=== PATIENT | male | born 1955 | race Caucasian/White ===

== ENCOUNTER 2016-09-22 10:35 | Emergency (ER) | payer BC, OTHER ==
[2016-09-22] MEDS ORDERED: OXYCODONE-ACETAMINOPHEN 5-325 MG TABLET PO ONE (11:51)
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
[2016-09-22 13:21] VITALS: BP 134/76
== END 2016-09-22 13:21 | disposition home or self-care (01) ==
LOC: ER 10:35
DX: S16.1XXA Strain of muscle, fascia and tendon at neck level, initial encounter (principal); M19.90 Unspecified osteoarthritis, unspecified site; I10 Essential (primary) hypertension; M54.2 Cervicalgia; M54.5 Low back pain; V87.7XXA Person injured in collision between other specified motor vehicles (traffic), initial encounter
CPT/HCPCS: 72125; 99283

== ENCOUNTER 2020-03-27 17:43 | Observation (INO) | payer BC ==
[2020-03-27 18:50] LABS: ALBUMIN 3.2 g/dL (3.5-5.0); ALKALINE PHOSPHATASE 74 U/L (38-126); ANION GAP 8 (5-19); ASPARTATE AMINO TRANSFERASE 27 U/L (17-59); BILIRUBIN,DIRECT 0.2 mg/dL (0.0-0.4); BILIRUBIN,TOTAL 0.7 mg/dL (0.2-1.3); BLOOD UREA NITROGEN 17 mg/dL (7-20); CALCIUM 8.4 mg/dL (8.4-10.2); CARBON DIOXIDE 25 mmol/L (22-30); CHLORIDE 109 mmol/L (98-107); CREATINE KINASE 51 U/L (55-170); GLUCOSE 148 mg/dL (75-110); TOTAL PROTEIN 6.3 g/dL (6.3-8.2)
[2020-03-27 19:02] LABS: CREATINE KINASE MB 0.64 ng/mL (<4.55)
[2020-03-27 19:03] LABS: TROPONIN I < 0.012 ng/mL
[2020-03-27 19:16] LABS: ABSOLUTE LYMPHOCYTES (AUTO) 1.4 10^3/uL (0.5-4.7); ABSOLUTE MONOCYTES (AUTO) 0.6 10^3/uL (0.1-1.4); ABSOLUTE NEUT (AUTO) 9.2 10^3/uL (1.7-8.2); BASOPHILS % (AUTO) 0.3 % (0-2); EOSINOPHILS % (AUTO) 0.2 % (0-6); HEMATOCRIT 37.5 % (37.9-51.0); HEMOGLOBIN 12.5 g/dL (13.5-17.0); MEAN CORPUSCULAR HEMOGLOBIN 27.5 pg (27.0-33.4); MEAN CORPUSCULAR HGB CONC 33.4 g/dL (32.0-36.0); MEAN CORPUSCULAR VOLUME 82 fl (80-97); MONOCYTES % (AUTO) 5.8 % (3-13); PLATELET COUNT 370 10^3/uL (150-450); RED BLOOD COUNT 4.56 10^6/uL (4.35-5.55); RED CELL DISTRIBUTION WIDTH 14.2 % (11.5-14.0); SEGMENTED NEUTROPHILS % (AUTO) 81.7 % (42-78); TOTAL CELLS COUNTED % (AUTO) 100 %; WHITE BLOOD COUNT 11.3 10^3/uL (4.0-10.5)
[2020-03-27] MEDS ORDERED: NORMAL SALINE 500 ML IV ONE (19:51)
[2020-03-27] MEDS ORDERED: MECLIZINE HCL 25 MG TABLET PO ONE (19:52)
--- NOTE | 2020-03-27 19:54 | ER Document Report ---
ED General - General Chief Complaint: Dizziness Stated Complaint: WEAKNESS Time Seen by Provider: 03/27/20 19:34 TRAVEL OUTSIDE OF THE U.[place]. IN LAST 30 DAYS: No - HPI Context: Time: 1940 Chief Complaint: [Dizziness and weakness] [64-year-old male presents complaining of generalized dizziness and weakness. Patient states his symptoms are worse when he opens his eyes or when he turns his head. Patient states he feels unsteady on his feet. ] History obtained from [patient] Symptoms began:[3 days ago] Onset: [Gradual] Timing: [Gradual] Quality: [Severe] Intensity: [Severe] Location: ["My head"] Radiation: [Denies] [The pain does not migrate to a new location.] Aggravating factors: [none] Relieving factors: [none] [Denies] SOB [Denies] nausea [Denies] vomiting [Denies] sweats [Denies] fever [Denies] cough [Denies] calf or leg swelling or pain - Related Data Allergies/Adverse Reactions: No Known Allergies Allergy (Unverified 09/22/16 10:47) Home Medications: furosemide, potassium, aspirin, esomeprazole, clopidogrel, metoprolol, metformin, clonidine, lisinopril, amlodipine, isosorbide, fioglitazone, glimepiride, rosuvastatin, trulicity, Past Medical History - General Information source: Patient - Social History Smoking Status: Never Smoker Frequency of alcohol use: Rare Drug Abuse: None Family History: Reviewed & Not Pertinent - Past Medical History Cardiac Medical History: Reports: Hx Heart Attack, Hx Hypercholesterolemia, Hx Hypertension Endocrine Medical History: Reports: Hx Diabetes Mellitus Type 2 Renal/ Medical History: Denies: Hx Peritoneal Dialysis Past Surgical History: Reports: Hx Cardiac Catheterization - with stents, Hx Cholecystectomy - Immunizations Hx Diphtheria, Pertussis, Tetanus Vaccination: Yes Review of Systems - Review of Systems Notes: Review of systems as below unless otherwise stated in HPI. CONSTITUTIONAL [No] fever, [No] chills. EYES [No] eye pain. ENT [No] URI symptoms, [No] sore throat, [No] ear pain. CARDIOVASCULAR [No] chest pain, [No] palpitations, [No] edema. RESPIRATORY [No] Cough, [No] SOB, [No] wheezing. GASTROINTESTINAL [No] abdominal pain, [No] nausea, [No] Diarrhea, [No] Vomiting, [No] constipation, [No] melena, [No] rectal bleeding. GENITOURINARY [No] dysuria, [No] urinary frequency, [No] hematuria, [No] urinary urgency MUSCULOSKELETAL [No] Back pain. SKIN [No] Rash. NEUROLOGIC [No] Headache, [No] recent seizures, [No] paralysis,[No] parathesias. Positive dizziness and weakness ENDOCRINE [No] polyuria. HEMO/LYMPATIC [No] easy brusing PSYCHIATRIC [No] depression. Physical Exam - Vital signs Vitals: Temp Pulse BP Pulse Ox 97.5 F 46 L 143/53 H 100 03/27/20 17:57 03/27/20 17:57 03/27/20 17:57 03/27/20 17:57 - Notes Notes: CONSTITUTIONAL [Vital signs reviewed, Patient appears comfortable, Alert and oriented X 3, Normal stature.] HEAD [Atraumatic, Normocephalic.] EYES [Eyes are normal to inspection, No discharge from eyes, Extraocular muscles intact, Sclera are normal, Conjunctiva are normal. Patient has horizontal fatiguing nystagmus but no vertical nystagmus] ENT [External ears normal to inspection, Nose examination normal, Mouth normal to inspection.] NECK [Normal ROM, No jugular venous distention, No meningeal signs, ] RESPIRATORY CHEST [Chest is nontender, Breath sounds normal, No respiratory distress.] CARDIOVASCULAR [RRR, No murmurs, Normal S1 S2, No rub, No gallop.] ABDOMEN [Abdomen is nontender, No pulsatile masses, No other masses, Bowel sounds normal, No distension, No peritoneal signs, No hernias.] BACK [There is no CVA Tenderness, There is no tenderness to palpation, Normal inspection.] UPPER EXTREMITY [Inspection normal, No cyanosis, No clubbing, No edema, LOWER EXTREMITY [Inspection normal, No cyanosis, No clubbing, No edema, No calf tenderness, NEURO [No focal motor deficits, No focal sensory deficits, Speech normal. Fatiguing nystagmus as noted above] SKIN [Skin is warm, Skin is dry, Skin is normal color.] PSYCHIATRIC [Normal affect. ] Course - Re-evaluation Re-evalutation: 03/28/20 08:21 Despite 225 mg dose of meclizine, fluids, Valium, treatment of UTI, patient remains very unsteady on his feet and complains of persistent dizziness. - Vital Signs Vital signs: Temp Pulse Resp BP Pulse Ox 98.7 F 47 L 17 139/61 H 94 03/27/20 19:20 03/27/20 19:20 03/28/20 07:00 03/28/20 04:01 03/28/20 07:00 - Laboratory Result Diagrams: 03/27/20 19:06 03/27/20 18:12 Laboratory results interpreted by me: 03/27/20 03/27/20 03/27/20 18:12 19:06 20:05 WBC 11.3 H Hgb 12.5 L Hct 37.5 L RDW 14.2 H Lymph % (Auto) 12.0 L Absolute Neuts (auto) 9.2 H Seg Neutrophils % 81.7 H Chloride 109 H Creatinine 0.42 L Glucose 148 H Creatine Kinase 51 L Albumin 3.2 L Urine Protein 100 H Urine Ketones TRACE H Urine Blood MODERATE H Urine Nitrite POSITIVE H Urine Urobilinogen 2.0 H Ur Leukocyte Esterase LARGE H Urine Ascorbic Acid 20 H - Diagnostic Test Radiology reviewed: Reports reviewed - EKG Interpretation by Me Additional EKG results interpreted by me: 03/28/20 08:24 EKG obtained on 03/27/2020 at 1800 hrs. was interpreted by this MD. Findings: Sinus bradycardia heart rate 48, first-degree AV block is present, right bundle branch block also appears present. QTC is 512, there are no obvious patterns of ST segment elevation, depression or reciprocal changes seen to suggest acute myocardial ischemia or infarction. Impression sinus bradycardia with first-d egree AV block, right bundle branch block and nonspecific ST segments. Discharge - Discharge Clinical Impression: Vertigo, Bradycardia UTI (urinary tract infection) Qualifiers: Urinary tract infection type: site unspecified Hematuria presence: with hematu sven Qualified Code(s): N39.0 - Urinary tract infection, site not specified Condition: Stable Disposition: ADMITTED OBSERVATION Admitting Provider: Unit Admitted: Medical Floor
[2020-03-27 20:51] LABS: APPEARANCE,URINE CLOUDY; BILIRUBIN,URINE NEGATIVE (NEGATIVE); COLOR,URINE AMBER; GLUCOSE, URINE NEGATIVE (NEGATIVE); KETONES,URINE TRACE mg/dL (NEGATIVE); LEUKOCYTE ESTERASE,URINE LARGE (NEGATIVE); NITRITE,URINE POSITIVE (NEGATIVE); PROTEIN,URINE 100 mg/dL (NEGATIVE); URINE SPECIFIC GRAVITY 1.029
--- NOTE | 2020-03-27 21:06 | RADIOLOGY REPORT (SQ) ---
EXAM DESCRIPTION: CT HEAD WITHOUT IV CONTRAST COMPLETED DATE/TME: 03/27/2020 20:45 CLINICAL HISTORY: 64 years, Male, dizziness, trouble walking COMPARISON: None. TECHNIQUE: Noncontrast CT head was acquired. No intravenous contrast was administered. Images stored on PACS. All CT scanners at this facility use dose modulation, iterative reconstruction, and/or weight based dosing when appropriate to reduce radiation dose to as low as reasonably achievable (ALARA). [facility]: Dose Right [facility]: CareDose [facility]: Dose Right [facility]: Teradose 4D [facility]: [employer] LIMITATIONS: None. FINDINGS: Evaluation of the brain parenchyma reveals a focus of hypodensity about the left lentiform nucleus on image 22 of series 2. This appears fairly well-demarcated on the coronal and sagittal reformations. Otherwise, the remainder of the brain parenchyma appears normal in attenuation. No acute intracranial hemorrhage, mass effect, or extra-axial fluid is seen. 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 Ventricles and sulcal spaces are normal in size and configuration. Globes and orbits show no acute abnormality. Rounded opacities are evident about both maxillary antra, indicating mucous retention cysts and/or inflammatory polyps. Remaining paranasal sinuses and mastoid air cells are clear. Calcifications are evident about the parasellar carotid arteries. No depressed skull fractures. IMPRESSION: No acute intracranial abnormality. Focus of hypodensity about the left lentiform nucleus appears to be well-demarcated on the coronal and sagittal reformations, either indicating a remote lacunar infarct or dilated perivascular recess. TECHNICAL DOCUMENTATION: Quality ID # 436: Final reports with documentation of one or more dose reduction techniques (e.g., Automated exposure control, adjustment of the mA and/or kV according to patient size, use of iterative reconstruction technique) copyright 2011 [employer]- All Rights Reserved
[2020-03-27] MEDS ORDERED: CEFTRIAXONE INJ 1000 MG VIAL IV ONE (21:08)
[2020-03-28] MEDS ORDERED: DIAZEPAM INJ 10 MG/2 ML DISP.SYRIN IV ONE (01:07)
[2020-03-28] MEDS ORDERED: GLUCAGON,HUMAN RECOMB 1 MG INJ IV STA (01:11)
[2020-03-28] MEDS ORDERED: DIAZEPAM 5 MG TABLET PO ONE (01:28)
[2020-03-28] MEDS ORDERED: MECLIZINE HCL 25 MG TABLET PO ONE (01:45)
[2020-03-28] MEDS ORDERED: ONDANSETRON HCL INJ/PF 4 MG/2 ML SDV IV ONE (02:15)
[2020-03-28] MEDS ORDERED: ONDANSETRON HCL INJ/PF 4 MG/2 ML SDV IV PRN (04:49)
[2020-03-28] MEDS ORDERED: ACETAMINOPHEN 325 MG TABLET PO PRN (04:49)
[2020-03-28] MEDS ORDERED: MECLIZINE HCL 25 MG TABLET PO PRN (05:01)
[2020-03-28] MEDS ORDERED: DEXTROSE 40% GEL 15 GM TUBE PO PRN ×2 (05:07)
[2020-03-28] MEDS ORDERED: GLUCAGON,HUMAN RECOMB 1 MG INJ IM PRN (05:07)
[2020-03-28] MEDS ORDERED: DEXTROSE 50%-WATER 25 GM/50 ML DISP.SYRIN IV PRN ×2 (05:07)
--- NOTE | 2020-03-28 05:08 | PDOC H&P ---
History of Present Illness Admission Date/PCP: DADA MORENO Patient complains of: vertigo History of Present Illness: SELAM BILLY is a 64 year old male with a history of CAD, type 2 diabetes, hypertension, hyperlipidemia and GERD who was recently diagnosed with COVID-19 now presents to the ED reporting he feels dizzy. He states that he feels like t he room spins around especially when he moves his head. Patient reports that the symptoms has been persistent for the past few days and he has been having balance issues due to vertigo. He also states that he has decreased hearing sensation on the right ear, with associated tinnitus, nausea and vomiting. The dizziness is worsened by movement of head and gets better when he closes his eyes. He states that he has been doing well regarding his COVID-19 symptoms and was supposed to finish his quarantine today. He denies any fever, cough, shortness of breath, chest pain, palpitation, fall, head injury, loss of consciousness or any change in his bowel or urinary habits. Past Medical History Cardiac Medical History: Reports: Myocardial Infarction, Hyperlipidema, Hypertension Endocrine Medical History: Reports: Diabetes Mellitus Type 2 Past Surgical History Past Surgical History: Reports: Cardiac Catheterization - with stents, Cholecystectomy Social History Information Source: Patient Lives with: Family Smoking Status: Never Smoker Hx Recreational Drug Use: No Drugs: None - Advance Directive Resuscitation Status: Full Code Family History Family History: Reviewed & Not Pertinent Parental Family History Reviewed: Yes Children Family History Reviewed: Yes Sibling(s) Family History Reviewed.: Yes Medication/Allergy Home Medications: Amlodipine Besylate [Norvasc 2.5 mg Tablet] 2.5 mg PO QAM 03/28/20 Aspirin [Ecotrin 81 mg EC Tablet] 81 mg PO QAM 03/28/20 Cefdinir 300 mg PO BID 10 Days #20 capsule 03/28/20 Clonidine HCl [Catapres 0.1 mg Tablet] 0.1 mg PO Q12A 03/28/20 Clopidogrel Bisulfate [Plavix 75 mg Tablet] 75 mg PO QAM 03/28/20 Dulaglutide [Trulicity] 1.5 mg SUBCUT ANGELES@1000 03/28/20 Esomeprazole Magnesium 40 mg PO QAM 03/28/20 Furosemide [Lasix 40 mg Tablet] 40 mg PO QAM 03/28/20 Glimepiride [Amaryl 4 mg Tablet] 8 mg PO QPM 03/28/20 Isosorbide Mononitrate [Imdur 30 mg Tablet.er] 30 mg PO QAM 03/28/20 Lisinopril [Prinivil 10 mg Tablet] 10 mg PO QAM 03/28/20 Metformin HCl [Metformin HCl ER] 1,000 mg PO BIDBS 03/28/20 Metoprolol Tartrate [Lopressor 100 mg Tablet] 100 mg PO Q12A 03/28/20 Pioglitazone HCl [Actos 30 mg Tablet] 30 mg PO QAM 03/28/20 Potassium Chloride [Klor-Con 10 Meq Tablet ER] 20 meq PO QAM 03/28/20 Rosuvastatin Calcium 5 mg PO QPM 03/28/20 Allergies/Adverse Reactions: No Known Allergies Allergy (Unverified 09/22/16 10:47) Review of Systems Constitutional: ABSENT: chills, fever(s), headache(s), weight gain, weight loss Ears: PRESENT: as per HPI Nose, Mouth, and Throat: PRESENT: vertigo. ABSENT: headache(s), mouth pain, sore throat Cardiovascular: ABSENT: chest pain, dyspnea on exertion, edema, orthropnea, palpitations Respiratory: ABSENT: cough, hemoptysis Gastrointestinal: ABSENT: abdominal pain, constipation, diarrhea, hematemesis, hematochezia, nausea, vomiting Genitourinary: ABSENT: dysuria, hematuria Musculoskeletal: ABSENT: joint swelling Integumentary: ABSENT: rash, wounds Neurological: PRESENT: as per HPI Psychiatric: ABSENT: anxiety, depression, homidical ideation, suicidal ideation Endocrine: ABSENT: cold intolerance, heat intolerance, polydipsia, polyuria Hematologic/Lymphatic: ABSENT: easy bleeding, easy bruising Physical Exam Vital Signs: Temp Pulse Resp BP Pulse Ox 98.7 F 47 L 19 138/63 H 96 03/27/20 19:20 03/27/20 19:20 03/28/20 03:01 03/28/20 03:01 03/28/20 03:01 Intake & Output 03/26/20 03/27/20 03/28/20 06:59 06:59 06:59 Intake Total 500 Balance 500 Weight 142.882 kg Additional comments: GENERAL APPEARANCE: Alert and oriented x3, in no acute distress HEENT: Normocephalic and atraumatic. No scleral icterus. Moist oral mucosa. Has horizontal nystagmus NECK: Supple. No lymphadenopathy or tenderness. No JVD CHEST: Symmetric. Nontender to palpation. LUNGS: Clear with good air entry bilaterally. No wheezing or crackles HEART: Regular rate and rhythm with normal S1 and S2. No murmurs, gallops, or rubs. ABDOMEN: Flat, soft, active bowel sounds, no direct or rebound tenderness. No organomegaly detected. EXTREMITIES: No cyanosis, clubbing, or edema. MUSCULOSKELETAL: No deformity, atrophy or swelling noted PSYCHIATRIC: Recent and remote memory is intact. Appropriate mood and affect. SKIN: Warm, dry, and well perfused. No lesions or rashes are noted. NEUROLOGIC: No focal sensory or motor deficits are noted. Results Laboratory Results: 03/27/20 19:06 03/27/20 18:12 03/27/20 03/27/20 03/27/20 18:12 18:12 19:06 WBC Cancelled 11.3 H RBC Cancelled 4.56 Hgb Cancelled 12.5 L Hct Cancelled 37.5 L MCV Cancelled 82 MCH Cancelled 27.5 MCHC Cancelled 33.4 RDW Cancelled 14.2 H Plt Count Cancelled 370 Seg Neutrophils % Cancelled 81.7 H Sodium 141.7 Potassium 4.0 Chloride 109 H Carbon Dioxide 25 Anion Gap 8 BUN 17 Creatinine 0.42 L Est GFR ( Amer) > 60 Glucose 148 H Calcium 8.4 Total Bilirubin 0.7 AST 27 Alkaline Phosphatase 74 Total Protein 6.3 Albumin 3.2 L Urine Color Urine Appearance Urine pH Ur Specific Warrior Urine Protein Urine Glucose (UA) Urine Ketones Urine Blood Urine Nitrite Ur Leukocyte Esterase Urine WBC (Auto) Urine RBC (Auto) 03/27/20 20:05 WBC RBC Hgb Hct MCV MCH MCHC RDW Plt Count Seg Neutrophils % Sodium Potassium Chloride Carbon Dioxide Anion Gap BUN Creatinine Est GFR ( Amer) Glucose Calcium Total Bilirubin AST Alkaline Phosphatase Total Protein Albumin Urine Color [place] Urine Appearance CLOUDY Urine pH 6.0 Ur Specific Warrior 1.029 Urine Protein 100 H Urine Glucose (UA) NEGATIVE Urine Ketones TRACE H Urine Blood MODERATE H Urine Nitrite POSITIVE H Ur Leukocyte Esterase LARGE H Urine WBC (Auto) >182 Urine RBC (Auto) >182 03/27/20 03/27/20 18:12 18:12 Creatine Kinase 51 L CK-MB (CK-2) 0.64 Troponin I < 0.012 Impressions: Head CT 03/27/20 19:52 IMPRESSION: No acute intracranial abnormality. Focus of hypodensity about the left lentiform nucleus appears to be well-demarcated on the coronal and sagittal reformations, either indicating a remote lacunar infarct or dilated perivascular recess. TECHNICAL DOCUMENTATION: Quality ID # 436: Final reports with documentation of one or more dose reduction techniques (e.g., Automated exposure control, adjustment of the mA and/or kV according to patient size, use of iterative reconstruction technique) copyright 2011 [employer]- All Rights Reserved Assessment and Plan - Diagnosis (1) Vertigo Is this a current diagnosis for this admission?: Yes Plan: Patient presents with 2 days duration of symptoms of vertigo Has associated decreased hearing on the right side with tinnitus Physical exam is significant for horizontal nystagmus Difficult to perform [place]-Hallpike's due to patient's body habitus Has no focal neurologic deficits CT head showed chronic microvascular changes but there was no acute intracranial findings Started on meclizine, Zofran Bradycardia may be contributing to his symptoms, metoprolol held May need audiology evaluation and vestibular rehab (2) Bradycardia Is this a current diagnosis for this admission?: Yes Plan: On presentation patient's heart rate was in the 40s Patient takes metoprolol 100 mg twice daily at home He was given glucagon at the ED Heart rate improved to higher 50s and low 60s On telemetry monitoring Hold metoprolol for now EKG shows sinus tachycardia she is SVE Cardiac enzymes were negative (3) UTI (urinary tract infection) Qualifiers: Urinary tract infection type: site unspecified Hematuria presence: with hematuria Qualified Code(s): N39.0 - Urinary tract infection, site not specified; R31.9 - Hematuria, unspecified Is this a current diagnosis for this admission?: Yes Plan: UA positive for leukocyte esterase and has multiple WBC per high-power field Started on ceftriaxone Follow-up with urine culture (4) CAD (coronary artery disease) Is this a current diagnosis for this admission?: Yes Plan: Currently is chest pain-free Continue aspirin, Plavix, statin, isosorbide mononitrate Metoprolol on hold for now due to bradycardia (5) Hypertension Is this a current diagnosis for this admission?: Yes Plan: BP within acceptable range Continue lisinopril Low-sodium diet (6) Type 2 diabetes mellitus Is this a current diagnosis for this admission?: Yes Plan: Placed on sliding scale insulin, hypoglycemia protocol and Accu-Cheks (7) History of 2019 novel coronavirus disease (COVID-19) Is this a current diagnosis for this admission?: Yes Plan: Currently patient has no respiratory symptoms Completed last day of quarantine today Continue supportive care as necessary - Time Time Spent with patient: 35 or more minutes Total Critical Time (Minutes): 45 Medications reviewed and adjusted accordingly: Yes Anticipated Discharge Disposition: Home, Self Care Anticipated Discharge Timeframe: within 48 hours - Inpatient Certification Based on my medical assessment, after consideration of the patient's comorbidities, presenting symptoms, or acuity I expect that the services needed warrant INPATIENT care.: Yes I certify that my determination is in accordance with my understanding of Medicare's requirements for reasonable and necessary INPATIENT services [42 CFR 412.3e].: Yes Medical Necessity: Failure to Improve With Outpatient Therapy, Significant Comorbidiites Make Outpatient Treatment Too Risky, Need Close Monitoring Due to Risk of Patient Decompensation, Need For Continuous Telemetry Monitoring, Risk of Complication if Not Cared For in Hospital Post Hospital Care: D/C or Transfer Summary
[2020-03-28] MEDS: PANTOPRAZOLE SODIUM 40 MG TABLET.DR PO SCH (05:52)
--- NOTE | 2020-03-28 08:12 | EKG REPORT ---
SEVERITY:- ABNORMAL ECG - SINUS BRADYCARDIA ATRIAL PREMATURE COMPLEX FIRST DEGREE AV BLOCK PROBABLE LEFT ATRIAL ABNORMALITY RBBB AND LAFB : Confirmed by: Akua Reynoso 28-Mar-2020 08:12:10
[2020-03-28] MEDS: INSULIN REG, HUMAN 100 UNIT/ML 3 ML VIAL (PYX) SUBCUT SCH ×4 (08:27→21:48)
[2020-03-28] MEDS: CLOPIDOGREL BISULFATE 75 MG TABLET PO SCH (11:15)
[2020-03-28] MEDS: ISOSORBIDE MONONITRATE 30 MG TAB.ER.24H PO SCH (11:15)
[2020-03-28] MEDS: ASPIRIN 81 MG TABLET, CHEWABLE PO SCH (11:15)
[2020-03-28] MEDS: ENOXAPARIN SODIUM INJ 40 MG/0.4 ML DISP.SYRIN SUBCUT SCH (11:15)
[2020-03-28] MEDS: LISINOPRIL 10 MG TABLET PO SCH (11:15)
[2020-03-28] MEDS: AMLODIPINE BESYLATE 2.5 MG TABLET PO SCH (11:15)
[2020-03-28] MEDS: ATORVASTATIN CALCIUM 40 MG TABLET PO SCH (22:05)
[2020-03-28] MEDS: CEFTRIAXONE 1 GM/D5W RTU 1 GM/50 ML RTUPB IV SCH (22:05)
[2020-03-29] MEDS: PANTOPRAZOLE SODIUM 40 MG TABLET.DR PO SCH (05:16)
[2020-03-29] MEDS: INSULIN REG, HUMAN 100 UNIT/ML 3 ML VIAL (PYX) SUBCUT SCH ×4 (08:02→21:30)
[2020-03-29] MEDS: ISOSORBIDE MONONITRATE 30 MG TAB.ER.24H PO SCH (09:50)
[2020-03-29] MEDS: LISINOPRIL 10 MG TABLET PO SCH (09:50)
[2020-03-29] MEDS: ASPIRIN 81 MG TABLET, CHEWABLE PO SCH (09:50)
[2020-03-29] MEDS: CLOPIDOGREL BISULFATE 75 MG TABLET PO SCH (09:50)
[2020-03-29] MEDS: AMLODIPINE BESYLATE 2.5 MG TABLET PO SCH (09:50)
[2020-03-29] MEDS: ENOXAPARIN SODIUM INJ 40 MG/0.4 ML DISP.SYRIN SUBCUT SCH (09:51)
--- NOTE | 2020-03-29 15:58 | PDOC PROGRESS REPORT ---
Subjective Date:: 03/29/20 Subjective:: No adverse events overnight. No new complaints. Patient said he is feeling muc h better. He said he knew that he was delirious when he came in but he said he feels like he is much more clear minded today. Vital signs have been stable. He has tested positive for coronavirus, and his has been quarantined at home with it, but he displays no symptoms of the disease whatsoever. Reason For Visit: VERTIGO,UTI (URINARY TRACT INFECTION), Physical Exam Vital Signs: Temp Pulse Resp BP Pulse Ox 97.8 F 74 19 161/81 H 97 03/29/20 15:16 03/29/20 15:16 03/29/20 15:16 03/29/20 15:16 03/29/20 15:16 Intake & Output 03/28/20 03/29/20 03/30/20 06:59 06:59 06:59 Intake Total 500 530 280 Balance 500 530 280 Weight 142.882 kg 143.4 kg General appearance: PRESENT: no acute distress, cooperative, disheveled, morbidly obese Respiratory exam: PRESENT: clear to auscultation antonio, symmetrical, unlabored. ABSENT: accessory muscle use, chest wall tenderness, crackles, prolonged expiratory phas, rhonchi, tachypnea, wheezes Cardiovascular exam: PRESENT: RRR, +S1, +S2 Pulses: PRESENT: normal carotid pulses Vascular exam: PRESENT: normal capillary refill GI/Abdominal exam: PRESENT: normal bowel sounds, soft. ABSENT: distended, guarding, rebound, tenderness Extremities exam: ABSENT: clubbing, pedal edema Musculoskeletal exam: PRESENT: normal inspection. ABSENT: deformity Neurological exam: PRESENT: alert, awake, oriented to person, oriented to place, oriented to situation Psychiatric exam: PRESENT: appropriate affect, normal mood Skin exam: PRESENT: dry, warm Results Laboratory Results: 03/27/20 19:06 03/27/20 18:12 03/27/20 20:05 Clean Catch Midstream Urine Culture - Final Escherichia Coli 03/27/20 03/27/20 18:12 18:12 Creatine Kinase 51 L CK-MB (CK-2) 0.64 Troponin I < 0.012 Impressions: Head CT 03/27/20 19:52 IMPRESSION: No acute intracranial abnormality. Focus of hypodensity about the left lentiform nucleus appears to be well-demarcated on the coronal and sagittal reformations, either indicating a remote lacunar infarct or dilated perivascular recess. TECHNICAL DOCUMENTATION: Quality ID # 436: Final reports with documentation of one or more dose reduction techniques (e.g., Automated exposure control, adjustment of the mA and/or kV according to patient size, use of iterative reconstruction technique) copyright 2011 [employer]- All Rights Reserved Assessment and Plan - Diagnosis (1) UTI (urinary tract infection) Qualifiers: Urinary tract infection type: site unspecified Hematuria presence: with hematuria Qualified Code(s): N39.0 - Urinary tract infection, site not specified; R31.9 - Hematuria, unspecified Is this a current diagnosis for this admission?: Yes (2) Bradycardia Is this a current diagnosis for this admission?: Yes (3) CAD (coronary artery disease) Qualifiers: Coronary Disease-Associated Artery/Lesion type: [place] artery [place] vs. 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 He was little bradycardic whenev er he came in but his beta-isaiah has been held. His heart rate has been in the 70s and 80s whereas previously it was in the 50s. He continues on antibiotics for his urinary tract infection, which we should be able to treat with oral antibiotics. As previously noted, he did test positive for cor onavirus but displays no symptoms whatsoever. If he continues to do well in the morning, he can be discharged home. - Time Time Spent with patient: 15-24 minutes Anticipated Discharge Disposition: Home, Self Care Anticipated Discharge Timeframe: within 24 hours
[2020-03-29] MEDS: CEFTRIAXONE 1 GM/D5W RTU 1 GM/50 ML RTUPB IV SCH (22:03)
[2020-03-29] MEDS: ATORVASTATIN CALCIUM 40 MG TABLET PO SCH (22:03)
[2020-03-30] MEDS: PANTOPRAZOLE SODIUM 40 MG TABLET.DR PO SCH (06:02)
[2020-03-30] MEDS: INSULIN REG, HUMAN 100 UNIT/ML 3 ML VIAL (PYX) SUBCUT SCH ×2 (08:33→11:53)
[2020-03-30] MEDS: CLOPIDOGREL BISULFATE 75 MG TABLET PO SCH (09:33)
[2020-03-30] MEDS: AMLODIPINE BESYLATE 2.5 MG TABLET PO SCH (09:33)
[2020-03-30] MEDS: ENOXAPARIN SODIUM INJ 40 MG/0.4 ML DISP.SYRIN SUBCUT SCH (09:33)
[2020-03-30] MEDS: LISINOPRIL 10 MG TABLET PO SCH (09:33)
[2020-03-30] MEDS: ASPIRIN 81 MG TABLET, CHEWABLE PO SCH (09:33)
[2020-03-30] MEDS: ISOSORBIDE MONONITRATE 30 MG TAB.ER.24H PO SCH (09:33)
[2020-03-30 12:25] VITALS: BP 161/85
--- NOTE | 2020-03-30 16:46 | PDOC DISCHARGE SUMMARY ---
Impression - Admit/DC Date/PCP Admission Date/Primary Care Provider: 03/28/20 05:51 DADA MORENO Discharge Date: 03/30/20 - Discharge Diagnosis (1) UTI (urinary tract infection) Is this a current diagnosis for this admission?: Yes (2) Bradycardia Is this a current diagnosis for this admission?: Yes (3) CAD (coronary artery disease) Is this a current diagnosis for this admission?: Yes (4) Hypertension Is this a current diagnosis for this admission?: Yes (5) Type 2 diabetes mellitus Is this a current diagnosis for this admission?: Yes (6) Vertigo Is this a current diagnosis for this admission?: Yes - Assessment Summary: He is not feeling as dizzy as he was earlier. He was little bradycardic whenever he came in but his beta-isaiah has been held. His heart rate has been in the 70s and 80s whereas previously it was in the 50s. He continues on antibiotics for his urinary tract infection, which we should be able to treat with oral antibiotics. As previously noted, he did test positive for coronavirus but displays no symptoms whatsoever. If he continues to do well in the morning, he can be discharged home. - Additional Information Resuscitation Status: Full Code Discharge Diet: Cardiac, Diabetic Discharge Activity: Activity As Tolerated, Balance Activity w/Rest Referrals: RITU MISHRA IV, MD [Emergency Provider] - DADA MORENO MD [Primary Care Provider] - 04/06/20 11:00 am Prescriptions: Cefdinir 300 mg PO BID 10 Days #20 capsule Home Medications: Amlodipine Besylate [Norvasc 2.5 mg Tablet] 2.5 mg PO QAM 03/28/20 Aspirin [Ecotrin 81 mg EC Tablet] 81 mg PO QAM 03/28/20 Cefdinir 300 mg PO BID 10 Days #20 capsule 03/28/20 Clonidine HCl [Catapres 0.1 mg Tablet] 0.1 mg PO Q12A 03/28/20 Clopidogrel Bisulfate [Plavix 75 mg Tablet] 75 mg PO QAM 03/28/20 Dulaglutide [Trulicity] 1.5 mg SUBCUT ANGELES@1000 03/28/20 Esomeprazole Magnesium 40 mg PO QAM 03/28/20 Furosemide [Lasix 40 mg Tablet] 40 mg PO QAM 12/07/20 Glimepiride [Amaryl 4 mg Tablet] 8 mg PO QPM 03/28/20 Isosorbide Mononitrate [Imdur 30 mg Tablet.er] 30 mg PO QAM 03/28/20 Lisinopril [Prinivil 10 mg Tablet] 10 mg PO QAM 03/28/20 Metformin HCl [Metformin HCl ER] 1,000 mg PO BIDBS 03/28/20 Metoprolol Tartrate [Lopressor 100 mg Tablet] 100 mg PO Q12A 03/28/20 Pioglitazone HCl [Actos 30 mg Tablet] 30 mg PO QAM 03/28/20 Potassium Chloride [Klor-Con 10 Meq Tablet ER] 20 meq PO QAM 03/28/20 Rosuvastatin Calcium 5 mg PO QPM 03/28/20 History of Present Illiness History of Present Illness: SELAM BILLY is a 64 year old male with a history of CAD, type 2 diabetes, hypertension, hyperlipidemia and GERD who was recently diagnosed with COVID-19 now presents to the ED reporting he feels dizzy. He states that he feels like the room spins around especially when he moves his head. Patient reports that the symptoms has been persistent for the past few days and he has been having balance issues due to vertigo. He also states that he has decreased hearing sensation on the right ear, with associated tinnitus, nausea and vomiting. The dizziness is worsened by movement of head and gets better when he closes his eyes. He states that he has been doing well regarding his COVID-19 symptoms and was supposed to finish his quarantine today. He denies any fever, cough, shortness of breath, chest pain, palpitation, fall, head injury, loss of consciousness or any change in his bowel or urinary habits. Hospital Course Hospital Course: He tested positive for coronavirus but he has had no symptoms whatsoever of the disease itself. He has been on room air the entire time and has had no shortness of breath. Mainly he had dizziness. He had a UTI that turned out to be an E. coli that is sensitive to several oral antibiotics. He will complete a course of cefdinir as an outpatient. His dizziness is also improved, and today he was able to get up and go to the bathroom and back under his own power. He did ask if he can have a walker and a shower chair to use at home in case management was consulted to help make these arrangements. His labs and examination were reassuring and he was discharged in stable condition. Physical Exam Vital Signs: Temp Pulse Resp BP Pulse Ox 97.8 F 63 20 161/85 H 97 03/30/20 11:58 03/30/20 11:58 03/30/20 11:58 03/30/20 11:17 03/30/20 11:58 Intake & Output 03/29/20 03/30/20 03/31/20 06:59 06:59 06:59 Intake Total 580 1010 Balance 580 1010 Weight 143.4 kg 143.6 kg General appearance: PRESENT: no acute distress, cooperative, disheveled, morbidly obese Respiratory exam: PRESENT: clear to auscultation antonio, symmetrical, unlabored. ABSENT: accessory muscle use, chest wall tenderness, crackles, prolonged expiratory phas, rhonchi, tachypnea, wheezes Cardiovascular exam: PRESENT: RRR, +S1, +S2 Pulses: PRESENT: normal carotid pulses Vascular exam: PRESENT: normal capillary refill GI/Abdominal exam: PRESENT: normal bowel sounds, soft. ABSENT: distended, guarding, rebound, tenderness Extremities exam: ABSENT: clubbing, pedal edema Musculoskeletal exam: PRESENT: normal inspection. ABSENT: deformity Neurological exam: PRESENT: alert, awake, oriented to person, oriented to place, oriented to situation Psychiatric exam: PRESENT: appropriate affect, normal mood Skin exam: PRESENT: dry, warm Results Laboratory Results: WBC 11.3 10^3/uL (4.0-10.5) H 03/27/20 19:06 RBC 4.56 10^6/uL (4.35-5.55) 03/27/20 19:06 Hgb 12.5 g/dL (13.5-17.0) L 03/27/20 19:06 Hct 37.5 % (37.9-51.0) L 03/27/20 19:06 MCV 82 fl (80-97) 03/27/20 19:06 MCH 27.5 pg (27.0-33.4) 03/27/20 19:06 MCHC 33.4 g/dL (32.0-36.0) 03/27/20 19:06 RDW 14.2 % (11.5-14.0) H 03/27/20 19:06 Plt Count 370 10^3/uL (150-450) 03/27/20 19:06 Lymph % (Auto) 12.0 % (13-45) L 03/27/20 19:06 [place] % (Auto) 5.8 % (3-13) 03/27/20 19:06 Eos % (Auto) 0.2 % (0-6) 03/27/20 19:06 Baso % (Auto) 0.3 % (0-2) 03/27/20 19:06 Absolute Neuts (auto) 9.2 10^3/uL (1.7-8.2) H 03/27/20 19:06 Absolute Lymphs (auto) 1.4 10^3/uL (0.5-4.7) 03/27/20 19:06 Absolute Monos (auto) 0.6 10^3/uL (0.1-1.4) 03/27/20 19:06 Absolute Eos (auto) 0.0 10^3/uL (0.0-0.6) 03/27/20 19:06 Absolute Basos (auto) 0.0 10^3/uL (0.0-0.2) 03/27/20 19:06 Seg Neutrophils % 81.7 % (42-78) H 03/27/20 19:06 Platelet Estimate Cancelled 03/27/20 18:12 Sodium 141.7 mmol/L (137-145) 03/27/20 18:12 Potassium 4.0 mmol/L (3.6-5.0) 03/27/20 18:12 Chloride 109 mmol/L (98-107) H 03/27/20 18:12 Carbon Dioxide 25 mmol/L (22-30) 03/27/20 18:12 Anion Gap 8 (5-19) 03/27/20 18:12 BUN 17 mg/dL (7-20) 03/27/20 18:12 Creatinine 0.42 mg/dL (0.52-1.25) L 03/27/20 18:12 Est GFR ( Amer) > 60 (>60) 03/27/20 18:12 Est GFR (MDRD) Non-Af > 60 (>60) 03/27/20 18:12 Glucose 148 mg/dL (75-110) H 03/27/20 18:12 POC Glucose 170 mg/dL (70-110) H 03/30/20 11:18 Calcium 8.4 mg/dL (8.4-10.2) 03/27/20 18:12 Total Bilirubin 0.7 mg/dL (0.2-1.3) 03/27/20 18:12 Direct Bilirubin 0.2 mg/dL (0.0-0.4) 03/27/20 18:12 Neonat Total Bilirubin Not Reportable 03/27/20 18:12 Neonat Direct Bilirubin Not Reportable 03/27/20 18:12 Neonat Indirect Bili Not Reportable 03/27/20 18:12 AST 27 U/L (17-59) 03/27/20 18:12 ALT 32 U/L (<50) 03/27/20 18:12 Alkaline Phosphatase 74 U/L (38-126) 03/27/20 18:12 Creatine Kinase 51 U/L (55-170) L 03/27/20 18:12 CK-MB (CK-2) 0.64 ng/mL (<4.55) 03/27/20 18:12 Troponin I < 0.012 ng/mL 03/27/20 18:12 Total Protein 6.3 g/dL (6.3-8.2) 03/27/20 18:12 Albumin 3.2 g/dL (3.5-5.0) L 03/27/20 18:12 Urine Color MUSTAPHA 03/27/20 20:05 Urine Appearance CLOUDY 03/27/20 20:05 Urine pH 6.0 (5.0-9.0) 03/27/20 20:05 Ur Specific [place] 1.029 03/27/20 20:05 Urine Protein 100 mg/dL (NEGATIVE) H 03/27/20 20:05 Urine Glucose (UA) NEGATIVE mg/dL (NEGATIVE) 03/27/20 20:05 Urine Ketones TRACE mg/dL (NEGATIVE) H 03/27/20 20:05 Urine Blood MODERATE (NEGATIVE) H 03/27/20 20:05 Urine Nitrite POSITIVE (NEGATIVE) H 03/27/20 20:05 Urine Bilirubin NEGATIVE (NEGATIVE) 03/27/20 20:05 Urine Urobilinogen 2.0 mg/dL (<2.0) H 03/27/20 20:05 Ur Leukocyte Esterase LARGE (NEGATIVE) H 03/27/20 20:05 Urine WBC (Auto) >182 /HPF 03/27/20 20:05 Urine RBC (Auto) >182 /HPF 03/27/20 20:05 U Hyaline Cast (Auto) 17 /LPF 03/27/20 20:05 Urine Bacteria (Auto) 3+ /HPF 03/27/20 20:05 U Non-Squamous Epis Auto 1 /HPF 03/27/20 20:05 Urine Mucus (Auto) MANY /LPF 03/27/20 20:05 Urine Ascorbic Acid 20 (NEGATIVE) H 03/27/20 20:05 Influenza A (RT-PCR) NEGATIVE (NEGATIVE) 03/28/20 06:10 Influenza B (RT-PCR) NEGATIVE (NEGATIVE) 03/28/20 06:10 RSV (RT-PCR) NEGATIVE (NEGATIVE) 03/28/20 06:10 SARS-CoV-2 Rap RNA(RT-PCR) POSITIVE (NEGATIVE) 03/28/20 06:10 Slides for Path Review Cancelled 03/27/20 18:12 03/27/20 18:12 CK-MB (CK-2) 0.64 Troponin I < 0.012 Impressions: Head CT 03/27/20 19:52 IMPRESSION: No acute intracranial abnormality. Focus of hypodensity about the left lentiform nucleus appears to be well-demarcated on the coronal and sagittal reformations, either indicating a remote lacunar infarct or dilated perivascular recess. TECHNICAL DOCUMENTATION: Quality ID # 436: Final reports with documentation of one or more dose reduction techniques (e.g., Automated exposure control, adjustment of the mA and/or kV according to patient size, use of iterative reconstruction technique) copyright 2011 [employer]- All Rights Reserved Plan Time Spent: Greater than 30 Minutes Stroke Is this a Stroke Patient?: No Acute Heart Failure Is this a Heart Failure Patient?: No
== END 2020-03-30 12:37 | disposition home or self-care (01) ==
LOC: ER 17:43 → EH 03-28 05:51 → 3W 03-28 10:18
PROVIDERS: ADMIT Student in an Organized Health Care Education/Training Program; ATTEND Family Medicine
DX: N39.0 Urinary tract infection, site not specified (principal); R31.9 Hematuria, unspecified; R00.1 Bradycardia, unspecified; I25.10 Atherosclerotic heart disease of native coronary artery without angina pectoris; I10 Essential (primary) hypertension; E11.9 Type 2 diabetes mellitus without complications; R42 Dizziness and giddiness; U07.1 COVID-19; E78.5 Hyperlipidemia, unspecified; R53.1 Weakness; Z79.82 Long term (current) use of aspirin; Z79.84 Long term (current) use of oral hypoglycemic drugs
CPT/HCPCS: 36415; 70450; 80053; 81001; 82550; 82553; 82962; 84484; 85025; 87040; 87086; 87088; 87186; 93005; 93010; 96361; 96365; 96375; 99285; 0241U; C9803; G0378; J0696; J1610; J1650; J1815; J2405; J3490; J7040